=== PATIENT | female | born 1985 | race Caucasian/White ===

== ENCOUNTER 2024-01-04 10:22 | Outpatient (CLI) | payer OTHER, SELFPAY ==
--- NOTE | ~2024-01-04 | MR_ITS ---
EXAMINATION: MR hip LT wo con DATE: 01/04/2024 11:35 INDICATION: Left hip pain. TECHNIQUE: Magnetic resonance imaging (MRI) of the left hip was performed without intravenous contras t. COMPARISON: None FINDINGS: Bones/cartilage: Bone alignment is normal. No fracture. The femoral head/neck morphologies are normal. The hips demons trate tiny osteophytes. There is pitting at right femoral head/neck junction. Small [id number] abida ges of left hip demonstrate normal cartilage. Labrum: The left acetabular labrum is normal. Fluid: There is no hip joint effusion. There is mild bilateral trochanteric bursitis. Soft tissues: The iliopsoas tendons and hamstring tendon origins are normal. The bilateral gluteus minimus and glut eus medius tendons are normal. There is an intrauterine device in expected position. IMPRESSION: 1. Mild bilateral trochanteric bursitis. Reviewed, dictated and finalized at location E.
== END 2024-01-04 10:23 | disposition home or self-care (01) ==
LOC: ANHIMG 10:30
PROVIDERS: Visit Provider Orthopaedic Surgery
DX: M70.62 Trochanteric bursitis, left hip (principal); M70.61 Trochanteric bursitis, right hip
CPT/HCPCS: 73721